=== PATIENT | male | born 1945 | race Caucasian/White ===

== ENCOUNTER 2020-12-22 08:05 | Emergency (ER) | payer OTHER ==
[~2020-12-22] VITALS: Ht 182.9 cm; Wt 93.4 kg
[~2020-12-22 08:05] MED LIST: ADULT LOW DOSE81 MG PO; ALLEGRA180 MG PO; CALCIUM +D & M1 EACH PO; CINNAMON PO; FISH OIL 1,0001 EAC5 PO; GLUCOPHAGE1000 MG PO; LANTUS SC; NOVOLOG100 UNIT/1 SQ; PRAVASTATIN SOD40 MG PO; TOPROL XL50 MG PO; ZESTRIL5 MG PO
[2020-12-22] MEDS ORDERED: ACTOS15 MG PO (08:24)
[2020-12-22] MEDS ORDERED: COZAAR 25 MG TA25 M1 PO (08:24)
[2020-12-22] MEDS ORDERED: LIPITOR10 MG PO (08:24)
[2020-12-22 08:36] LABS: ABSOLUTE BASOPHILS 0.1 thou/uL (0.0-0.2); ABSOLUTE EOSINOPHILS 0.2 thou/uL (0.0-0.7); ABSOLUTE LYMPHOCYTES 0.8 thou/uL (0.8-5.3); ABSOLUTE MONOCYTES 0.7 thou/uL (0.0-1.2); ABSOLUTE NEUTROPHILS 9.8 thou/uL (1.6-8.1); BASOPHILS 0.9 %; EOSINOPHILS 1.4 %; HEMOGLOBIN 12.4 gm/dL (14.0-18.0); LYMPHOCYTES 7.2 %; MCH 29.3 pg (26.0-34.0); MCHC 32.7 g/dL (28.0-37.0); MCV 89.5 fL (80.0-100.0); MONOCYTES 6.4 %; MPV 7.5 fl. (7.2-11.1); NUCLEATED RBCS 0 /100WBC; PLATELET COUNT* 236 thou/uL (150-400); POLYS 84.1 %; RBC 4.25 mil/uL (4.50-6.00); RDW-CV 14.1 % (10.5-14.5); WBC 11.7 thou/uL (4.0-11.0)
[2020-12-22 08:45] LABS: CALCIUM 9.1 mg/dL (8.5-10.1); POTASSIUM 3.8 mmol/L (3.5-5.1)
[2020-12-22 08:47] LABS: APTT 25.6 Seconds (25.0-31.3); PROTIME 10.3 Seconds (9.20-11.50)
[2020-12-22 08:56] LABS: ALBUMIN 3.3 g/dL (3.4-5.0); TOTAL BILIRUBIN 0.4 mg/dL (<0.1-1.0); TOTAL PROTEIN 7.5 g/dL (6.4-8.2)
[2020-12-22 09:50] VITALS: BP 165/73
--- NOTE | 2020-12-22 10:40 | EKG ---
[place] [address] ELECTROCARDIOGRAM REPORT Name: BROOKE CHAWLA Room: [facility]#: [id number] Admission: 12/22/20 Attend Phys: Discharge: Date of : 43 Date of Service: 12/22/20827 Report #: [id number] THIS REPORT FOR: //name// [facility] ED Test Date: 2020-12-22 Test Time: 08:28:27 Pat Name: BROOKE CHAWLA Department: Room: Gender: Lens Blank Gauger: [facility] : 1945 Requested By: Gonzalo Lomeli Order Number: [id number] MD: Shaw Sal Measurements Intervals [place] Rate: 58 P: 44 DC: 213 QRS: 62 QRSD: 169 T: 38 QT: 472 QTc: 464 Interpretive Statements Sinus rhythm Atrial premature complex Prolonged DC interval Right bundle branch block No previous ECG available for comparison Electronically Signed On 12-22-2020 10:40:48 SUPERINTENDENT CIRCUS by Shaw Sal [email or web address] <ELECTRONICALLY SIGNED> By: Shaw Sal MD, [facility] 12/22/20 1040 7 Shaw Sal MD, [facility] /EPI
== END 2020-12-22 09:55 | disposition home or self-care (01) ==
LOC: M.ERS 08:05
PROVIDERS: Family Medicine
DX: E16.2 Hypoglycemia, unspecified (principal); I10 Essential (primary) hypertension; G47.30 Sleep apnea, unspecified; E78.5 Hyperlipidemia, unspecified; I25.10 Atherosclerotic heart disease of native coronary artery without angina pectoris; Z95.1 Presence of aortocoronary bypass graft; Z88.8 Allergy status to other drugs, medicaments and biological substances; Z79.4 Long term (current) use of insulin

== ENCOUNTER 2021-11-25 17:35 | Inpatient (IN) | payer OTHER ==
[~2021-11-25] VITALS: Ht 180.3 cm; Wt 93.0 kg
--- NOTE | ~2021-11-25 | PROC ---
[address] [address] PROCEDURE REPORT Name: BROOKE CHAWLA Room: [address] IN M.R.#: [id number] Admission: 11/25/21 Attend Phys: Randall Isidro MD Discharge: Date of : 43 Report #: [id number] THIS REPORT FOR: cc: Jeffrey Jacinto John E. DO [facility],Medical Records Staff ~ For GI report, please see the Provation report in Perceptive 7 content. By: 0658Medical Records Staff NATALIE /BRITTNEY
--- NOTE | ~2021-11-25 | CON ---
[address] [address] CONSULTATION Name: BROOKE CHAWLA Room: [address] IN M.R.#: [id number] Admission: 11/25/21 Attend Phys: Randall Isidro MD Discharge: Date of : 43 Report #: [id number] THIS REPORT FOR: cc: Jeffrey Jacinto John E. DO Khosla, Parveen K. MD ~ DATE OF CONSULTATION: 12/08/2021 HISTORY OF PRESENT ILLNESS: This is a 76-year-old male patient who was evaluated by me for the possibility of stroke. The patient was already seen by [facility] for neurological consultation and Neurology consultation is recommended for a followup. This patient has a huge records and part of it was reviewed and it looks like the patient was admitted with multiple problems which include septic shock, acute kidney problems, non-STEMI and he had some leg pain, which was going to be addressed. REVIEW OF SYSTEMS: Positive for the fact that this patient has a prior coronary artery disease. The patient also has what looks like atrial fibrillation. He had a GI bleed. I understand from the notes he is not on any anticoagulation now because of the GI bleed. He was in ICU and he has been here for a long time now. Review of systems is positive for respiratory failure also. He has a multisystem problems. He denies any prior history of stroke. It looks like he had been diagnosed with the peripheral vascular disease. He has a history of electrolyte imbalances. A 14-point review of systems is also positive for numerous other medical problems as summarized in other consultants note, part of which were reviewed. FAMILY HISTORY: Negative for any congenital epilepsy. SOCIAL HISTORY: He is and his provided most of the history. PHYSICAL EXAMINATION: GENERAL: The patient is difficult to examine because he is on BiPAP, but he says his speech is reasonable. says that his speech was bad yesterday. This was because of some sputum, which was stuck in his throat and this morning, they noticed it was worse, but it is better now. They did not tell me whether it is back to the baseline or not. NEUROLOGIC: His cranial nerve examination was attempted, but it was unsuccessful. He has very little strength in all 4 extremities. The strength is estimated to be about 2/5 in the upper extremities and 1/5 in the lower extremities. I could not elicit his reflexes. He did reasonably well with the position sense. He says he can feel touch. CARDIAC: Noncontributory. He has at least 1 episode of atrial fibrillation. VITAL SIGNS: His blood pressure is 130/64, respirations 28, pulse is 78. [place] [address] CONSULTATION Name: BROOKE CHAWLA Room: [address] IN .R.#: [id number] Admission: 11/25/21 Attend Phys: Randall Isidro MD Discharge: Date of : 43 Report #: [id number] LABORATORY DATA: His last hemoglobin was 8.8. At one time, it was 6.5. IMAGING: He did have a CT angio of the head and neck that showed stenosis about 50% on both sides. IMPRESSION AND PLAN: This patient is predisposed to develop seizure because of carotid stenosis as well as atrial fibrillations. It is difficult to tell if he had a stroke at this time or not because he has so many other medical issues, but he has very poor movement in all 4 extremities. 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 I will talk to his doctors tomorrow to see if he can go for any testing like MRI. He will need an extensive MRI if he goes there and we will decide only after talking to them whether we can take him for the testing or not. I spent more than 50 minutes of time taking care of this patient today and majority was spent counseling, coordinating and reviewing his extensive records including imaging studies. Thank you very much for this referral. By: 1647 Lakshmi Galvez MD /nick
--- NOTE | ~2021-11-25 | CON ---
[address] [address] CONSULTATION Name: BROOKE CHAWLA Room: [address] IN M.R.#: [id number] Admission: 11/25/21 Attend Phys: Randall Isidro MD Discharge: Date of : 43 Report #: [id number] THIS REPORT FOR: cc: Jeffrey Jacinto John E. DO Namin, Farid M. MD ~ DATE OF CONSULTATION: 11/27/2021 REASON FOR CONSULTATION: Active GI bleeding. HISTORY OF PRESENT ILLNESS: This is a 76-year-old male with history of coronary artery disease, status post CABG, who is on Eliquis. The patient presented to hospital ER with neck pain and knee pain. He apparently was dropping his hemoglobin and this morning coded. The patient's hemoglobin had dropped from 11 to 6. He usually takes Eliquis as mentioned above, which was hold today. PAST MEDICAL HISTORY: Significant for history of coronary artery disease, status post CABG, diabetes mellitus, hypertension, sleep apnea, dyslipidemia, hernia repair, retinopathy, partial pancreatectomy, and knee pain. ALLERGIES: No known drug allergy. MEDICATIONS: Please refer to MAR. SOCIAL HISTORY: The patient lives at home. He is on Eliquis and there is no report of alcohol or tobacco use. FAMILY HISTORY: Noncontributory. PHYSICAL EXAMINATION: VITAL SIGNS: Reveals normal vitals. GENERAL: The patient is sedated and intubated. NECK: Supple. CARDIOVASCULAR: Regular rate. LUNGS: Clear bilaterally. ABDOMEN: Soft. Bowel sounds are positive. NEUROLOGIC: The patient is sedated. LABORATORY DATA: Reveals sodium of 132, potassium 4.1, BUN is 56, creatinine 1.6, glucose 218. AST is 48, ALT 14, alkaline phosphatase 57, total bilirubin is 0.6, albumin is 1.2. WBC is 15.2, hemoglobin 6.1, down from 11.2 on admission, platelet is 160. IMAGING: There is active activity in the right upper quadrant near the gallbladder. This may suggest bleeding near the [place] [address] CONSULTATION Name: BROOKE CHAWLA Room: [address] IN [facility]#: [id number] Admission: 11/25/21 Attend Phys: Randall Isidro MD Discharge: Date of : 43 Report #: [id number] ASSESSMENT AND PLAN: The patient with significant drop in hemoglobin and anemia, which is posthemorrhagic. We will transfuse him to hemoglobin of 8. He should be off of anticoagulation therapy. We will consider Protonix drip, get clearance from Cardiology as the patient has non-ST elevation myocardial infarction and perform upper endoscopy. If we could not find the source of bleeding, the patient may benefit from CT angio with coiling by IR. By: 1315 1914Margot Linder MD /nick
--- NOTE | ~2021-11-25 | PROC ---
[address] [address] PROCEDURE REPORT Name: BROOKE CHAWLA Room: [address] IN M.R.#: [id number] Admission: 11/25/21 Attend Phys: Randall Isidro MD Discharge: Date of : 43 Report #: [id number] THIS REPORT FOR: cc: Jeffrey Jacinto John E. DO [facility],Medical Records Staff ~ For GI report, please see the Provation report in Perceptive 7 content. By: 0656Medical Records Staff MARIPOSA /BRITTNEY
[~2021-11-25 17:35] MED LIST changes: +ACTOS15 MG PO; +COZAAR 25 MG TA25 M1 PO; +LIPITOR10 MG PO
[2021-11-25 17:40] VITALS: BP 147/75
[2021-11-25 18:35] LABS: BE -0.5 mmol/L (-2 to +3); PO2 VENOUS 40.1 mmHg (35.0-45.0)
[2021-11-25 18:37] LABS: HEMATOCRIT 37.5 % (42.0-52.0); HEMOGLOBIN 12.3 gm/dL (14.0-18.0); MCH 29.6 pg (26.0-34.0); MCHC 32.8 g/dL (28.0-37.0); MCV 90.1 fL (80.0-100.0); NUCLEATED RBCS 0 /100WBC; PLATELET COUNT* 144 thou/uL (150-400); RBC 4.16 mil/uL (4.50-6.00); RDW-CV 14.3 % (10.5-14.5); WBC 6.3 thou/uL (4.0-11.0)
[2021-11-25] MEDS ORDERED: PERCOCET PO (18:39)
[2021-11-25 18:55] LABS: ABSOLUTE LYMPHOCYTES 0.5 thou/uL (0.8-5.3); ABSOLUTE MONOCYTES 0.5 thou/uL (0.0-1.2); ABSOLUTE NEUTROPHILS 5.3 thou/uL (1.6-8.1); PLATELET ESTIMATE DECREASED
[2021-11-25 18:57] LABS: ALBUMIN 2.2 g/dL (3.4-5.0); CALCIUM 8.5 mg/dL (8.5-10.1); CREATININE 1.7 mg/dL (0.6-1.3); POTASSIUM 4.8 mmol/L (3.5-5.1); TOTAL BILIRUBIN 0.9 mg/dL (<0.1-1.0)
[2021-11-25 23:00] VITALS: BP 110/56
[2021-11-26] VITALS (7 sets, daily range): BP systolic 111–149; BP diastolic 59–77
[2021-11-26 07:00] LABS: HEMATOCRIT 33.6 % (42.0-52.0); HEMOGLOBIN 11.2 gm/dL (14.0-18.0); MCH 29.4 pg (26.0-34.0); MCHC 33.3 g/dL (28.0-37.0); MCV 88.3 fL (80.0-100.0); MPV 7.5 fl. (7.2-11.1); RBC 3.8 mil/uL (4.50-6.00); RDW-CV 14.8 % (10.5-14.5); WBC 7.5 thou/uL (4.0-11.0)
[2021-11-26 07:07] LABS: CALCIUM 7.8 mg/dL (8.5-10.1); CREATININE 1.2 mg/dL (0.6-1.3)
[2021-11-26 07:17] LABS: POTASSIUM 3.7 mmol/L (3.5-5.1)
[2021-11-26 10:23] LABS: CHOLESTEROL 78 mg/dL (<200); HDL CHOLESTEROL 11 mg/dL (>40); LDL CHOLESTEROL 36 mg/dL (<100); SERUM ASSESSMENT Clear; TC:HDL 7.1 Ratio (Not establshd); TRIGLYCERIDE 155 mg/dL (<150); VLDL 31 mg/dL (<40)
--- NOTE | 2021-11-26 10:55 | EKG ---
[place] [address] ELECTROCARDIOGRAM REPORT Name: BROOKE CHAWLA Room: [place] [address] ADM IN [facility]#: [id number] Admission: 11/25/21 Attend Phys: Randall Isidro, Discharge: Date of : 43 Date of Service: 11/25/21 1820 Report #: [id number] THIS REPORT FOR: //name// [facility] ED Test Date: 2021-11-25 Test Time: 18:20:04 Pat Name: BROOKE CHAWLA Department: Room: [facility] Gender: M Java J2Ee Application Developer: TRACEY : 1945 Requested By: Gonzalo Lomeli Order Number: [id number] MD: Shaw Sal Measurements Intervals [place] Rate: 103 P: 37 VT: 186 QRS: 82 QRSD: 151 T: 66 QT: 399 QTc: 523 Interpretive Statements Sinus tachycardia Right bundle branch block Compared to ECG 12/22/2020 08:28:27 Sinus rhythm no longer present Atrial premature complex(es) no longer present First degree AV block no longer present Electronically Signed On 11-26-2021 10:55:14 PHOTO LAB MANAGER by Shaw Sal [email or web address] <ELECTRONICALLY SIGNED> By: Shaw Sal MD, [facility] 11/26/21 1055 1820 1820 Shaw Sal MD, [facility] /EPI
[2021-11-26 19:46] LABS: INFLUENZA A ANTIGEN Negative (Negative); INFLUENZA B ANTIGEN Negative (Negative)
[2021-11-27] VITALS (67 sets, daily range): BP systolic 48–239; BP diastolic 24–155
[2021-11-27 04:20] LABS: ABSOLUTE MONOCYTES 1.6 thou/uL (0.0-1.2); ABSOLUTE NEUTROPHILS 12.6 thou/uL (1.6-8.1); BASOPHILS 0.1 %; EOSINOPHILS 0.1 %; HEMATOCRIT 23.2 % (42.0-52.0); LYMPHOCYTES 6.3 %; MCH 29.4 pg (26.0-34.0); MCHC 31.4 g/dL (28.0-37.0); MONOCYTES 10.6 %; MPV 9.2 fl. (7.2-11.1); NUCLEATED RBCS 0 /100WBC; PLATELET COUNT* 160 thou/uL (150-400); POLYS 82.9 %; RBC 2.48 mil/uL (4.50-6.00); RDW-CV 15.6 % (10.5-14.5); WBC 15.2 thou/uL (4.0-11.0)
[2021-11-27 04:52] LABS: ALBUMIN 1.2 g/dL (3.4-5.0); CALCIUM 7.2 mg/dL (8.5-10.1); CREATININE 1.7 mg/dL (0.6-1.3); POTASSIUM 4.1 mmol/L (3.5-5.1); TOTAL BILIRUBIN 0.6 mg/dL (<0.1-1.0); TOTAL PROTEIN 4.7 g/dL (6.4-8.2)
[2021-11-27 05:05] LABS: HEMATOCRIT 21.2 % (42.0-52.0)
[2021-11-27 05:11] LABS: HEMOGLOBIN 6.8 gm/dL (14.0-18.0)
[2021-11-27 06:12] LABS: HEMOGLOBIN 7.3 gm/dL (14.0-18.0); MCV 93.5 fL (80.0-100.0)
[2021-11-27 08:58] LABS: HEMATOCRIT 20.6 % (42.0-52.0)
[2021-11-27 09:10] LABS: HEMOGLOBIN 6.1 gm/dL (14.0-18.0)
[2021-11-27 09:53] LABS: URINE BILIRUBIN NEGATIVE (Negative); URINE BLOOD 3+ (Negative); URINE CLARITY CLEAR; URINE COLOR YELLOW; URINE GLUCOSE-RANDOM NEGATIVE (Negative); URINE KETONES NEGATIVE (Negative); URINE LEUKOCYTES-REFLEX NEGATIVE (Negative); URINE NITRITE-REFLEX NEGATIVE (Negative); URINE PROTEIN 1+ (Negative); URINE SPECIFIC GRAVITY 1.025 (1.005-1.030); URINE UROBILINOGEN 0.2 E.U./dl (0.2-1.0)
[2021-11-27 09:58] LABS: PCO2 21.5 mmHg (35.0-45.0)
[2021-11-27 09:59] LABS: BE -23.1 mmol/L (-2 to +3)
[2021-11-27 10:10] LABS: SQUAMOUS 0-3 Few /LPF (0-3); URINE RBC 3-10 Few /HPF (0-2); URINE WBC-REFLEX 0-5 Rare /HPF (0-5)
[2021-11-27 10:11] LABS: BACTERIA-REFLEX 1-9 Few /HPF (None Seen); CASTS None Seen /LPF (None Seen); CRYSTALS None Seen /LPF (None Seen)
[2021-11-27 15:37] LABS: HEMATOCRIT 21.6 % (42.0-52.0)
[2021-11-27 16:30] LABS: BE -15.3 mmol/L (-2 to +3); PCO2 21.6 mmHg (35.0-45.0)
[2021-11-27 16:36] LABS: PO2 373.3 mmHg (75.0-100.0); pH 7.276 (7.340-7.450)
[2021-11-27 18:51] LABS: HEMATOCRIT 23.9 % (42.0-52.0); HEMOGLOBIN 7.9 gm/dL (14.0-18.0)
[2021-11-27] MEDS ORDERED: DORYX MPC120 MG PO (22:07)
[2021-11-27] MEDS ORDERED: DOXAZOSIN MESYLA2 MG PO (22:08)
[2021-11-27] MEDS ORDERED: LEVO-T75 MCG PO (22:11)
[2021-11-27] MEDS ORDERED: TRESIBA FL100 UNIT/1 SQ (22:23)
[2021-11-27] MEDS ORDERED: HUMALOG100 UNIT/1 SUBQ (22:23)
[2021-11-27] MEDS ORDERED: OZEMPIC0.25 MG/0. SQ (22:24)
[2021-11-28] VITALS (50 sets, daily range): BP systolic 91–133; BP diastolic 34–56
[2021-11-28 08:05] LABS: ALKALINE PHOSPHATASE 110 U/L (46-116); ANION GAP 14 mmol/L (7-16); BUN 81 mg/dL (7-18); CHLORIDE 102 mmol/L (98-107); CO2 19 mmol/L (21-32); GLUCOSE 310 mg/dL (70-99); SGPT 3129 U/L (30-65); SODIUM 135 mmol/L (136-145); TOTAL BILIRUBIN 0.7 mg/dL (<0.1-1.0); TOTAL PROTEIN 3.8 g/dL (6.4-8.2)
[2021-11-28 08:09] LABS: CREATININE 3.2 mg/dL (0.6-1.3)
[2021-11-28 08:12] LABS: CALCIUM 5.8 mg/dL (8.5-10.1)
[2021-11-28 08:29] LABS: HEMATOCRIT 28.6 % (42.0-52.0); HEMOGLOBIN 9.2 gm/dL (14.0-18.0)
[2021-11-28 09:15] LABS: ABSOLUTE BASOPHILS 0.1 thou/uL (0.0-0.2); ABSOLUTE EOSINOPHILS 0.4 thou/uL (0.0-0.7); ABSOLUTE LYMPHOCYTES 1.1 thou/uL (0.8-5.3); ABSOLUTE MONOCYTES 0.6 thou/uL (0.0-1.2); ABSOLUTE NEUTROPHILS 10.2 thou/uL (1.6-8.1); BASOPHILS 0.5 %; LYMPHOCYTES 8.9 %; MCH 30.1 pg (26.0-34.0); MCHC 32.7 g/dL (28.0-37.0); MCV 92.1 fL (80.0-100.0); MONOCYTES 4.7 %; NUCLEATED RBCS 0 /100WBC; PLATELET COUNT* 178 thou/uL (150-400); POLYS 82.9 %; RBC 2.45 mil/uL (4.50-6.00); RDW-CV 14.7 % (10.5-14.5); WBC 12.3 thou/uL (4.0-11.0)
[2021-11-28 09:30] LABS: SGOT < 5 U/L (15-37)
[2021-11-28 09:45] LABS: MAGNESIUM 1.8 mg/dL (1.8-2.4)
--- NOTE | 2021-11-28 11:53 | 2DMMODE ---
[place] [address] 2 D/M-MODE ECHOCARDIOGRAM Name: BROOKE CHAWLA Room: [address] IN .R.#: [id number] Admission: 11/25/21 Attend Phys: Randall Isidro, Discharge: Date of : 43 Date of Service: 11/28/21 1152 Report #: [id number] THIS REPORT FOR: cc: Jeffrey Jacinto John E. DO Holkins,Jeffrey Solorio MD [facility] ~ APPROVED REPORT Study performed: 11/28/2021 11:07:09 EXAM: Comprehensive 2D, Doppler, and color-flow Echocardiogram Patient Location: In-Patient Room #: 003 BSA: 2.07 HR: 104 bpm BP: 98/48 mmHg Other Information Study Quality: Fair Technically limited study due to inability to position patient. Indications [place] 2D Dimensions IVSd: 11.28 (7-11mm) LVOT Diam: 19.37 (18-24mm) LVDd: 38.59 mm PWd: 11.54 (7-11mm) Ascending Ao: 31.14 (22-36mm) LVDs: 26.16 (25-40mm) Aortic Root: 28.66 mm Volumes Left Atrial Volume (Systole) LA ESV Index: 9.00 mL/m2 Aortic Valve AoV Peak Rodrigo.: 2.46 m/s AO Peak Gr.: 24.20 mmHg LVOT Max P.15 mmHg AO Mean Gr.: 11.76 mmHg LVOT Mean P.68 mmHg LVOT Max V: 1.13 m/s AO V2 VTI: 33.79 cm LVOT Mean V: 0.94 m/s ESPERANZA (VTI): 1.57 cm2 LVOT V1 VTI: 17.98 [place] [address] 2 D/M-MODE ECHOCARDIOGRAM Name: BROOKE CHAWLA Room: [address] IN .R.#: [id number] Admission: 11/25/21 Attend Phys: Randall Isidro, Discharge: Date of : 43 Date of Service: 11/28/21 1152 Report #: [id number] Mitral Valve E/A Ratio: 0.60 MV Decel. Time: 170.70 ms MV E Max Rodrigo.: 0.47 m/s MV PHT: 49.50 ms MVA (PHT): 4.44 cm2 TDI E/Lateral E': 3.92 E/Medial E': 6.71 Medial E' Rodrigo.: 0.07 m/s Lateral E' Rodrigo.: 0.12 m/s Pulmonary Valve PV Peak Rodrigo.: 1.41 m/s PV Peak Gr.: 7.99 mmHg Tricuspid Valve RAP Estimate: 5.00 mmHg TR Peak Gr.: 21.01 mmHg RVSP: 26.01 mmHg PA Pressure: 26.01 mmHg Left Ventricle The left ventricle is normal size. There is normal LV segmental wall motion. There is normal left ventricular wall thickness. Left ventricular systolic function is normal. The left ventricular ejection fraction is within the normal range. LVEF is 65-70%. Grade I - abnormal relaxation pattern. Right Ventricle The right ventricle is normal size. The right ventricular systolic function is normal. Atria The left atrium size is normal. The right atrium size is normal. Aortic Valve Moderate aortic valve sclerosis. No aortic regurgitation is present. Mild aortic stenosis. Mitral Valve The mitral valve is normal in structure. There is no mitral valve regurgitation noted. No evidence of mitral valve stenosis. Tricuspid Valve The tricuspid valve is normal in structure. Mild [place] [address] 2 D/M-MODE ECHOCARDIOGRAM Name: DENTONBROOKE MICHAEL Room: [address]#: [id number] Admission: 11/25/21 Attend Phys: Randall Isidro, Discharge: Date of : 43 Date of Service: 11/28/21 1152 Report #: [id number] regurgitation. Pulmonic Valve The pulmonary valve is normal in structure. There is no pulmonic valvular regurgitation. Great Vessels The aortic root is normal in size. IVC is normal in size and collapses >50% with inspiration. Pericardium There is no pericardial effusion. <Conclusion> The left ventricle is normal size. Left ventricular systolic function is normal. The left ventricular ejection fraction is within the normal range. LVEF is 65-70%. Grade I - abnormal relaxation pattern. The right ventricle is normal size. The left atrium size is normal. Moderate aortic valve sclerosis. No aortic regurgitation is present. Mild aortic stenosis. The mitral valve is normal in structure. The tricuspid valve is normal in structure. Mild tricuspid regurgitation. IVC is normal in size and collapses >50% with inspiration. There is no pericardial effusion. There is normal LV segmental wall motion. <ELECTRONICALLY SIGNED> By: Jeffrey Juarez MD, FACC 11/28/21 1152 51 51 Jeffrey Juarez MD, FACC /INF
[2021-11-28 11:58] LABS: BE -8.1 mmol/L (-2 to +3); PCO2 33.9 mmHg (35.0-45.0); PO2 85.5 mmHg (75.0-100.0); pH 7.322 (7.340-7.450)
--- NOTE | 2021-11-28 13:14 | EKG ---
[place] [address] ELECTROCARDIOGRAM REPORT Name: BROOKE CHAWLA Room: [address] ADM IN .R.#: [id number] Admission: 11/25/21 Attend Phys: Randall Isidro, Discharge: Date of : 43 Date of Service: 11/27/21 0725 Report #: [id number] THIS REPORT FOR: //name// [facility] Test Date: 2021-11-27 Test Time: 07:25:25 Pat Name: BROOKE CHAWLA Department: Room: [facility] Gender: M Housing Development Specialist: JUAN R : 1945 Requested By: Magali Alvarado Order Number: [id number] Teetee MD: Jeffrey Juarez Measurements Intervals [place] Rate: 96 P: 69 AL: 150 QRS: 39 QRSD: 156 T: 38 QT: 404 QTc: 511 Interpretive Statements Sinus rhythm Right bundle branch block Compared to ECG 11/25/2021 18:20:04 Sinus tachycardia no longer present Electronically Signed On 11-28-2021 13:14:11 URGENT CARE NURSE PRACTITIONER by Jeffrey Juarez [email or web address] <ELECTRONICALLY SIGNED> By: Jeffrey Juarez MD, [facility] 11/28/21 1314 0725 0725 Jeffrey Juarez MD, [facility] /EPI
[2021-11-28 13:47] LABS: CREATININE 3.8 mg/dL (0.6-1.3)
[2021-11-28 13:49] LABS: CALCIUM 5.9 mg/dL (8.5-10.1)
[2021-11-28 18:41] LABS: BE -8.1 mmol/L (-2 to +3); PCO2 33.8 mmHg (35.0-45.0); PO2 107.4 mmHg (75.0-100.0); pH 7.322 (7.340-7.450)
[2021-11-29] VITALS (112 sets, daily range): BP systolic 82–139; BP diastolic 41–68
[2021-11-29 03:36] LABS: MCH 31.5 pg (26.0-34.0); MCHC 34.8 g/dL (28.0-37.0); MCV 90.3 fL (80.0-100.0); MPV 8.3 fl. (7.2-11.1); NUCLEATED RBCS 0 /100WBC; PLATELET COUNT* 165 thou/uL (150-400); RBC 1.71 mil/uL (4.50-6.00); WBC 9.6 thou/uL (4.0-11.0)
[2021-11-29 03:39] LABS: HEMOGLOBIN 5.4 gm/dL (14.0-18.0)
[2021-11-29 03:41] LABS: HEMATOCRIT 15.4 % (42.0-52.0)
[2021-11-29 03:52] LABS: CALCIUM 6.1 mg/dL (8.5-10.1); CREATININE 4.5 mg/dL (0.6-1.3); MAGNESIUM 1.9 mg/dL (1.8-2.4); POTASSIUM 4.1 mmol/L (3.5-5.1); TOTAL BILIRUBIN 0.7 mg/dL (<0.1-1.0); TOTAL PROTEIN 4.4 g/dL (6.4-8.2)
[2021-11-29 04:41] LABS: PHOSPHORUS* 5.4 mg/dL (2.5-4.9)
[2021-11-29 06:12] LABS: ABSOLUTE NEUTROPHILS 8.5 thou/uL (1.6-8.1); PLATELET ESTIMATE ADEQUATE
[2021-11-29 06:13] LABS: ABSOLUTE LYMPHOCYTES 0.8 thou/uL (0.8-5.3); ABSOLUTE MONOCYTES 0.3 thou/uL (0.0-1.2); ANISOCYTOSIS 3+; POLYCHROMASIA 1+
[2021-11-29 06:14] LABS: HYPOCHROMASIA 1+; MICROCYTES Occasional
[2021-11-29 06:38] LABS: HEMATOCRIT 15.5 % (42.0-52.0); HEMOGLOBIN 5.3 gm/dL (14.0-18.0)
[2021-11-29 07:24] LABS: BE -4.6 mmol/L (-2 to +3); PCO2 38.3 mmHg (35.0-45.0); PO2 106.5 mmHg (75.0-100.0); pH 7.348 (7.340-7.450)
[2021-11-29 11:51] LABS: HEMOGLOBIN 6.5 gm/dL (14.0-18.0)
[2021-11-29 11:52] LABS: HEMATOCRIT 19.1 % (42.0-52.0)
[2021-11-29 17:08] LABS: ABSOLUTE BASOPHILS 0.1 thou/uL (0.0-0.2); ABSOLUTE LYMPHOCYTES 0.8 thou/uL (0.8-5.3); ABSOLUTE MONOCYTES 0.3 thou/uL (0.0-1.2); ABSOLUTE NEUTROPHILS 13.3 thou/uL (1.6-8.1); BASOPHILS 0.4 %; EOSINOPHILS 0.2 %; HEMATOCRIT 23.2 % (42.0-52.0); HEMOGLOBIN 7.8 gm/dL (14.0-18.0); LYMPHOCYTES 5.7 %; MCH 29.7 pg (26.0-34.0); MCHC 33.7 g/dL (28.0-37.0); MCV 88.3 fL (80.0-100.0); MONOCYTES 2.3 %; NUCLEATED RBCS 0 /100WBC; PLATELET COUNT* 150 thou/uL (150-400); POLYS 91.4 %; RBC 2.63 mil/uL (4.50-6.00); RDW-CV 14.7 % (10.5-14.5); WBC 14.5 thou/uL (4.0-11.0)
[2021-11-29 17:42] LABS: ALBUMIN 2.1 g/dL (3.4-5.0); CALCIUM 6.5 mg/dL (8.5-10.1); CREATININE 3.7 mg/dL (0.6-1.3); POTASSIUM 3.9 mmol/L (3.5-5.1); TOTAL PROTEIN 4.8 g/dL (6.4-8.2)
[2021-11-29 20:37] LABS: INR 1.3; PROTIME 13.3 Seconds (9.20-11.50)
[2021-11-30] VITALS (264 sets, daily range): BP systolic 73–151; BP diastolic 25–96
[2021-11-30 04:27] LABS: ABSOLUTE EOSINOPHILS 0.1 thou/uL (0.0-0.7); ABSOLUTE LYMPHOCYTES 0.7 thou/uL (0.8-5.3); ABSOLUTE MONOCYTES 0.4 thou/uL (0.0-1.2); ABSOLUTE NEUTROPHILS 15.1 thou/uL (1.6-8.1); BASOPHILS 0.2 %; EOSINOPHILS 0.3 %; HEMOGLOBIN 7.4 gm/dL (14.0-18.0); LYMPHOCYTES 4.4 %; MCH 29.8 pg (26.0-34.0); MCHC 33.6 g/dL (28.0-37.0); MCV 88.9 fL (80.0-100.0); MONOCYTES 2.4 %; MPV 8.3 fl. (7.2-11.1); NUCLEATED RBCS 0 /100WBC; PLATELET COUNT* 149 thou/uL (150-400); POLYS 92.7 %; RBC 2.48 mil/uL (4.50-6.00); RDW-CV 15.2 % (10.5-14.5); WBC 16.3 thou/uL (4.0-11.0)
[2021-11-30 05:07] LABS: ALBUMIN 1.6 g/dL (3.4-5.0); CALCIUM 6.4 mg/dL (8.5-10.1); POTASSIUM 3.9 mmol/L (3.5-5.1); TOTAL PROTEIN 4.6 g/dL (6.4-8.2)
[2021-11-30 05:11] LABS: PHOSPHORUS* 3.9 mg/dL (2.5-4.9)
[2021-11-30 08:33] LABS: BE -0.8 mmol/L (-2 to +3); PCO2 41.7 mmHg (35.0-45.0); PO2 90.1 mmHg (75.0-100.0); pH 7.382 (7.340-7.450)
[2021-11-30 12:25] LABS: ABSOLUTE EOSINOPHILS 0.1 thou/uL (0.0-0.7); ABSOLUTE LYMPHOCYTES 0.4 thou/uL (0.8-5.3); ABSOLUTE MONOCYTES 0.7 thou/uL (0.0-1.2); ABSOLUTE NEUTROPHILS 18.8 thou/uL (1.6-8.1); EOSINOPHILS 0.3 %; HEMATOCRIT 22.6 % (42.0-52.0); HEMOGLOBIN 7.6 gm/dL (14.0-18.0); LYMPHOCYTES 1.8 %; MCH 29.7 pg (26.0-34.0); MCHC 33.8 g/dL (28.0-37.0); MCV 87.8 fL (80.0-100.0); MONOCYTES 3.7 %; MPV 8.3 fl. (7.2-11.1); NUCLEATED RBCS 0 /100WBC; PLATELET COUNT* 166 thou/uL (150-400); POLYS 94.2 %; RBC 2.57 mil/uL (4.50-6.00); RDW-CV 15.2 % (10.5-14.5)
[2021-11-30 15:15] LABS: HEMATOCRIT 22.1 % (42.0-52.0); HEMOGLOBIN 7.5 gm/dL (14.0-18.0)
[2021-11-30 17:07] LABS: HEPATITIS B SURFACE AG Negative (Negative)
[2021-12-01] VITALS (22 sets, daily range): BP systolic 105–149; BP diastolic 46–61
[2021-12-01 00:16] LABS: ABSOLUTE LYMPHOCYTES 0.4 thou/uL (0.8-5.3); ABSOLUTE MONOCYTES 0.4 thou/uL (0.0-1.2); ABSOLUTE NEUTROPHILS 17.1 thou/uL (1.6-8.1); BASOPHILS 0.2 %; EOSINOPHILS 0.1 %; HEMATOCRIT 23.8 % (42.0-52.0); HEMOGLOBIN 7.9 gm/dL (14.0-18.0); LYMPHOCYTES 2.5 %; MCH 29.7 pg (26.0-34.0); MCHC 33.2 g/dL (28.0-37.0); MCV 89.5 fL (80.0-100.0); MONOCYTES 2.2 %; MPV 8.3 fl. (7.2-11.1); NUCLEATED RBCS 0 /100WBC; PLATELET COUNT* 152 thou/uL (150-400); RBC 2.66 mil/uL (4.50-6.00)
[2021-12-01 03:52] LABS: ABSOLUTE BASOPHILS 0.1 thou/uL (0.0-0.2); ABSOLUTE LYMPHOCYTES 0.5 thou/uL (0.8-5.3); ABSOLUTE MONOCYTES 0.5 thou/uL (0.0-1.2); ABSOLUTE NEUTROPHILS 17.1 thou/uL (1.6-8.1); BASOPHILS 0.4 %; EOSINOPHILS 0.1 %; HEMATOCRIT 24.3 % (42.0-52.0); LYMPHOCYTES 2.7 %; MCH 29.5 pg (26.0-34.0); MCHC 33.1 g/dL (28.0-37.0); MCV 89.2 fL (80.0-100.0); MONOCYTES 2.8 %; MPV 8.2 fl. (7.2-11.1); NUCLEATED RBCS 0 /100WBC; PLATELET COUNT* 162 thou/uL (150-400); RBC 2.73 mil/uL (4.50-6.00); RDW-CV 15.4 % (10.5-14.5); WBC 18.2 thou/uL (4.0-11.0)
[2021-12-01 04:07] LABS: ALBUMIN 1.7 g/dL (3.4-5.0); CALCIUM 6.7 mg/dL (8.5-10.1); POTASSIUM 3.8 mmol/L (3.5-5.1); TOTAL BILIRUBIN 1.3 mg/dL (<0.1-1.0); TOTAL PROTEIN 5.2 g/dL (6.4-8.2)
[2021-12-01 04:09] LABS: CREATININE 2.8 mg/dL (0.6-1.3)
[2021-12-01 10:06] LABS: BE -2.8 mmol/L (-2 to +3); PO2 66.5 mmHg (75.0-100.0); pH 7.433 (7.340-7.450)
[2021-12-01 15:01] LABS: ABSOLUTE LYMPHOCYTES 0.5 thou/uL (0.8-5.3); ABSOLUTE MONOCYTES 0.5 thou/uL (0.0-1.2); ABSOLUTE NEUTROPHILS 17.7 thou/uL (1.6-8.1); BASOPHILS 0.2 %; HEMATOCRIT 25.8 % (42.0-52.0); HEMOGLOBIN 8.5 gm/dL (14.0-18.0); LYMPHOCYTES 2.4 %; MCH 29.9 pg (26.0-34.0); MCHC 33.2 g/dL (28.0-37.0); MCV 90.1 fL (80.0-100.0); MONOCYTES 2.6 %; MPV 8.4 fl. (7.2-11.1); NUCLEATED RBCS 0 /100WBC; PLATELET COUNT* 177 thou/uL (150-400); POLYS 94.8 %; RBC 2.86 mil/uL (4.50-6.00); RDW-CV 15.6 % (10.5-14.5); WBC 18.7 thou/uL (4.0-11.0)
--- NOTE | 2021-12-01 16:07 | EKG ---
[place] [address] ELECTROCARDIOGRAM REPORT Name: BROOKE CHAWLA Room: [address] ADM IN M.R.#: [id number] Admission: 11/25/21 Attend Phys: Randall Isidro, Discharge: Date of : 43 Date of Service: 12/01/21 1455 Report #: [id number] THIS REPORT FOR: //name// [facility] Test Date: 2021-12-01 Test Time: 14:55:23 Pat Name: BROOKE CHAWLA Department: Room: [address] Gender: M Molding Machine Operator Helper: - : 1945 Requested By: Vasyl Berman Order Number: [id number] Teetee MD: Jeffrey Juarez Measurements Intervals [place] Rate: 101 P: FL: QRS: 79 QRSD: 147 T: 30 QT: 359 QTc: 466 Interpretive Statements Sinus rhythm with frequent and consecutively occurring PACs Right bundle branch block Nonspecific ST-T alterations Compared to ECG 11/27/2021 07:25:25 PACs are noted and nonspecific ST-T changes have occurred Electronically Signed On 12-01-2021 16:07:00 MOTION PICTURE NARRATOR by Jeffrey Juarez [email or web address] <ELECTRONICALLY SIGNED> By: Jeffrey Juarez MD, FAC 12/01/21 1607 1455 1455 Jeffrey Juarez MD, [facility] /EPI
--- NOTE | 2021-12-01 17:13 | TEE ---
[place] [address] TRANSESOPHAGEAL ECHOCARDIOGRAM Name: BROOKE CHAWLA Room: [address] IN [facility]#: [id number] Admission: 11/25/21 Attend Phys: Randall Isidro, Discharge: Date of : 43 Date of Service: 12/01/21 1713 Report #: [id number] THIS REPORT FOR: cc: Jeffrey Jacinto John E. DO Liston, Michael J. MD [facility] ~ APPROVED REPORT Study performed: 12/01/2021 15:28:24 EXAM: Transesophageal Echocardiogram Patient Location: In-Patient Room #: 003 Status: routine BSA: 2.06 HR: 114 bpm BP: 105/50 mmHg Rhythm: Atrial Fibrillation Other Information Study Quality: Good Indications Atrial Fibrillation bacteremia Echo Enhancing Agent Indication: Rule out Shunt Agent(s) / Amount(s) Used: Agitated Saline 10 cc Procedure After obtaining informed consent, patient underwent transesophageal echo in the Bedside. Type of Sedation : Conscious Sedation Sedation was administered by Sowmya Sanders RN. Sedation start time: 1540 Case end Time: 1550 Sedation was achieved intravenously with: Versed (2) Fentanyl (50) Transesophageal probe was inserted and advanced into esophagus without difficulty by Ramiro Antunez MD, FACC. Echo enhancement indication: R/O Septal defect. Echo enhancement agent administered: Agitated Saline The ELA was performed without complications. Throughout the procedure, the blood pressure, pulse oximetry, [place] [address] TRANSESOPHAGEAL ECHOCARDIOGRAM Name: BROOKE CHAWLA Room: [address] IN [facility].#: [id number] Admission: 11/25/21 Attend Phys: Randall Isidro, Discharge: Date of : 43 Date of Service: 12/01/21 1713 Report #: [id number] rhythm, and rate were monitored. The patient tolerated the procedure without adverse effects. Recovery from conscious sedation was uneventful and vital signs were stable. Left Ventricle The left ventricle is normal size. There is normal LV segmental wall motion. There is normal left ventricular wall thickness. Left ventricular systolic function is normal. LVEF is 60-65%. Right Ventricle The right ventricle is normal size. The right ventricular systolic function is normal. Atria The left atrium size is normal. No thrombus is visualized in the left atrium or appendage. The interatrial septum is intact with no evidence for an atrial septal defect. The right atrium size is normal. Aortic Valve Moderate aortic valve sclerosis. No aortic regurgitation is present. Mitral Valve The mitral valve is normal in structure. Mild mitral regurgitation. No evidence of mitral valve stenosis. Tricuspid Valve The tricuspid valve is normal in structure. Mild tricuspid regurgitation. Pulmonic Valve Pulmonic valve is not well visualized. Great Vessels The aortic root is normal in size. Pericardium There is no pericardial effusion. <Conclusion> The left ventricle is normal size. There is normal left ventricular wall thickness. Left ventricular systolic function is normal. LVEF is 60-65%. The interatrial septum is intact with [place] [address] TRANSESOPHAGEAL ECHOCARDIOGRAM Name: BROOKE CHAWLA Room: [address] IN [facility].#: [id number] Admission: 11/25/21 Attend Phys: Randall Isidro, Discharge: Date of : 43 Date of Service: 12/01/211712 Report #: [id number] septal defect. The left atrium size is normal. No thrombus is visualized in the left atrium or appendage. Moderate aortic valve sclerosis. Mild mitral regurgitation. Mild tricuspid regurgitation. There was no evidence of valvular vegetation seen. <ELECTRONICALLY SIGNED> By: Ramiro Antunez MD, FACC 12/01/211712 12 12 Ramiro Antunez MD, FACC /INF
[2021-12-01 22:50] LABS: ABSOLUTE LYMPHOCYTES 0.6 thou/uL (0.8-5.3); ABSOLUTE MONOCYTES 0.5 thou/uL (0.0-1.2); ABSOLUTE NEUTROPHILS 14.7 thou/uL (1.6-8.1); BASOPHILS 0.2 %; HEMATOCRIT 24.6 % (42.0-52.0); HEMOGLOBIN 8.3 gm/dL (14.0-18.0); LYMPHOCYTES 3.7 %; MCH 30.4 pg (26.0-34.0); MCHC 33.8 g/dL (28.0-37.0); MCV 89.9 fL (80.0-100.0); MONOCYTES 3.4 %; MPV 8.5 fl. (7.2-11.1); NUCLEATED RBCS 0 /100WBC; PLATELET COUNT* 198 thou/uL (150-400); POLYS 92.7 %; RBC 2.74 mil/uL (4.50-6.00); RDW-CV 14.9 % (10.5-14.5); WBC 15.9 thou/uL (4.0-11.0)
[2021-12-02] VITALS (39 sets, daily range): BP systolic 96–143; BP diastolic 47–84
[2021-12-02 06:07] LABS: HEMATOCRIT 25.1 % (42.0-52.0); HEMOGLOBIN 8.3 gm/dL (14.0-18.0); MCH 30.4 pg (26.0-34.0); MCHC 33.3 g/dL (28.0-37.0); MCV 91.3 fL (80.0-100.0); MPV 8.1 fl. (7.2-11.1); NUCLEATED RBCS 0 /100WBC; PLATELET COUNT* 203 thou/uL (150-400); RBC 2.75 mil/uL (4.50-6.00); RDW-CV 15.3 % (10.5-14.5); WBC 13.9 thou/uL (4.0-11.0)
[2021-12-02 06:35] LABS: ALBUMIN 1.4 g/dL (3.4-5.0); CALCIUM 7.3 mg/dL (8.5-10.1); CREATININE 3.2 mg/dL (0.6-1.3); POTASSIUM 3.7 mmol/L (3.5-5.1); TOTAL BILIRUBIN 0.7 mg/dL (<0.1-1.0); TOTAL PROTEIN 5.5 g/dL (6.4-8.2)
[2021-12-02 06:54] LABS: ABSOLUTE LYMPHOCYTES 0.3 thou/uL (0.8-5.3); ABSOLUTE MONOCYTES 0.4 thou/uL (0.0-1.2); ABSOLUTE NEUTROPHILS 13.2 thou/uL (1.6-8.1)
[2021-12-02 06:55] LABS: PLATELET ESTIMATE ADEQUATE
[2021-12-02 12:40] LABS: ABSOLUTE LYMPHOCYTES 0.7 thou/uL (0.8-5.3); ABSOLUTE MONOCYTES 0.8 thou/uL (0.0-1.2); ABSOLUTE NEUTROPHILS 12.5 thou/uL (1.6-8.1); BASOPHILS 0.1 %; EOSINOPHILS 0.1 %; HEMATOCRIT 24.9 % (42.0-52.0); HEMOGLOBIN 8.1 gm/dL (14.0-18.0); LYMPHOCYTES 4.6 %; MCH 29.8 pg (26.0-34.0); MCHC 32.6 g/dL (28.0-37.0); MCV 91.2 fL (80.0-100.0); MONOCYTES 5.9 %; NUCLEATED RBCS 0 /100WBC; PLATELET COUNT* 207 thou/uL (150-400); POLYS 89.3 %; RBC 2.73 mil/uL (4.50-6.00)
[2021-12-02 20:58] LABS: HEMATOCRIT 24.3 % (42.0-52.0); MCH 30.2 pg (26.0-34.0); MCHC 33.1 g/dL (28.0-37.0); NUCLEATED RBCS 0 /100WBC; PLATELET COUNT* 222 thou/uL (150-400); RBC 2.67 mil/uL (4.50-6.00); RDW-CV 15.1 % (10.5-14.5); WBC 15.5 thou/uL (4.0-11.0)
[2021-12-02 21:36] LABS: ABSOLUTE LYMPHOCYTES 0.9 thou/uL (0.8-5.3); ABSOLUTE MONOCYTES 0.8 thou/uL (0.0-1.2); ABSOLUTE NEUTROPHILS 13.8 thou/uL (1.6-8.1); PLATELET ESTIMATE ADEQUATE
[2021-12-03] VITALS (26 sets, daily range): BP systolic 124–197; BP diastolic 52–82
[2021-12-03 05:29] LABS: ABSOLUTE LYMPHOCYTES 0.4 thou/uL (0.8-5.3); ABSOLUTE MONOCYTES 0.9 thou/uL (0.0-1.2); ABSOLUTE NEUTROPHILS 11.7 thou/uL (1.6-8.1); BASOPHILS 0.2 %; EOSINOPHILS 0.1 %; HEMATOCRIT 23.2 % (42.0-52.0); HEMOGLOBIN 7.8 gm/dL (14.0-18.0); LYMPHOCYTES 3.4 %; MCH 30.6 pg (26.0-34.0); MCHC 33.4 g/dL (28.0-37.0); MCV 91.6 fL (80.0-100.0); MONOCYTES 6.8 %; MPV 7.7 fl. (7.2-11.1); NUCLEATED RBCS 0 /100WBC; PLATELET COUNT* 199 thou/uL (150-400); POLYS 89.5 %; RBC 2.53 mil/uL (4.50-6.00); RDW-CV 15.1 % (10.5-14.5)
[2021-12-03 05:51] LABS: ALBUMIN 1.4 g/dL (3.4-5.0); CALCIUM 7.5 mg/dL (8.5-10.1); CREATININE 2.8 mg/dL (0.6-1.3); POTASSIUM 3.5 mmol/L (3.5-5.1); TOTAL BILIRUBIN 0.4 mg/dL (<0.1-1.0); TOTAL PROTEIN 5.7 g/dL (6.4-8.2)
[2021-12-03 05:54] LABS: MAGNESIUM 2.2 mg/dL (1.8-2.4); PHOSPHORUS* 4.3 mg/dL (2.5-4.9)
[2021-12-03 11:48] LABS: BE 5.1 mmol/L (-2 to +3); PCO2 37.6 mmHg (35.0-45.0); PO2 64.2 mmHg (75.0-100.0); pH 7.496 (7.340-7.450)
[2021-12-03 12:58] LABS: ABSOLUTE LYMPHOCYTES 0.5 thou/uL (0.8-5.3); ABSOLUTE NEUTROPHILS 11.2 thou/uL (1.6-8.1); BASOPHILS 0.2 %; HEMATOCRIT 24.4 % (42.0-52.0); HEMOGLOBIN 8.1 gm/dL (14.0-18.0); LYMPHOCYTES 3.7 %; MCH 30.2 pg (26.0-34.0); MCV 91.4 fL (80.0-100.0); MONOCYTES 7.8 %; MPV 7.5 fl. (7.2-11.1); NUCLEATED RBCS 0 /100WBC; PLATELET COUNT* 208 thou/uL (150-400); POLYS 88.3 %; RBC 2.67 mil/uL (4.50-6.00); RDW-CV 14.9 % (10.5-14.5); WBC 12.7 thou/uL (4.0-11.0)
[2021-12-03 20:45] LABS: ABSOLUTE BASOPHILS 0.2 thou/uL (0.0-0.2); ABSOLUTE LYMPHOCYTES 0.6 thou/uL (0.8-5.3); ABSOLUTE MONOCYTES 1.1 thou/uL (0.0-1.2); ABSOLUTE NEUTROPHILS 11.5 thou/uL (1.6-8.1); BASOPHILS 1.2 %; HEMATOCRIT 24.8 % (42.0-52.0); HEMOGLOBIN 8.2 gm/dL (14.0-18.0); LYMPHOCYTES 4.5 %; MCH 30.1 pg (26.0-34.0); MCV 91.1 fL (80.0-100.0); MONOCYTES 8.2 %; MPV 7.9 fl. (7.2-11.1); NUCLEATED RBCS 0 /100WBC; PLATELET COUNT* 224 thou/uL (150-400); POLYS 86.1 %; RBC 2.72 mil/uL (4.50-6.00); WBC 13.3 thou/uL (4.0-11.0)
[2021-12-03 20:52] LABS: CALCIUM 7.5 mg/dL (8.5-10.1); CREATININE 2.3 mg/dL (0.6-1.3); POTASSIUM 3.3 mmol/L (3.5-5.1)
[2021-12-04] VITALS (11 sets, daily range): BP systolic 156–194; BP diastolic 74–97
[2021-12-04 04:14] LABS: ABSOLUTE LYMPHOCYTES 0.5 thou/uL (0.8-5.3); ABSOLUTE MONOCYTES 0.9 thou/uL (0.0-1.2); ABSOLUTE NEUTROPHILS 10.5 thou/uL (1.6-8.1); BASOPHILS 0.1 %; HEMATOCRIT 24.7 % (42.0-52.0); HEMOGLOBIN 8.2 gm/dL (14.0-18.0); LYMPHOCYTES 3.9 %; MCH 30.5 pg (26.0-34.0); MCHC 33.2 g/dL (28.0-37.0); MONOCYTES 7.2 %; MPV 7.9 fl. (7.2-11.1); NUCLEATED RBCS 0 /100WBC; PLATELET COUNT* 234 thou/uL (150-400); POLYS 88.8 %; RBC 2.68 mil/uL (4.50-6.00); RDW-CV 14.9 % (10.5-14.5); WBC 11.8 thou/uL (4.0-11.0)
[2021-12-04 05:38] LABS: ALBUMIN 1.5 g/dL (3.4-5.0); CALCIUM 7.4 mg/dL (8.5-10.1); CREATININE 2.1 mg/dL (0.6-1.3); POTASSIUM 3.1 mmol/L (3.5-5.1); TOTAL BILIRUBIN 0.6 mg/dL (<0.1-1.0); TOTAL PROTEIN 6.3 g/dL (6.4-8.2)
--- NOTE | 2021-12-04 09:45 | CON ---
[address] [address] CONSULTATION Name: JOHANNEBROOKE SEYMOUR Room: [address] IN M.R.#: [id number] Admission: 11/25/21 Attend Phys: Randall Isidro MD Discharge: Date of : 43 Report #: [id number] THIS REPORT FOR: cc: Jeffrey Jacinto John E. DO Biggs, F. Douglas MD [facility] ~ DATE OF CONSULTATION: 12/03/2021 CARDIOLOGY HOSPITAL FOLLOWUP VISIT HISTORY OF PRESENT ILLNESS: The patient was intubated, sedated and on the ventilator. He is awake, but cannot respond. Report from the nurse indicates that he has had some mild systolic hypertension and mildly elevated heart rate with sinus tachycardia. PHYSICAL EXAMINATION: VITAL SIGNS: His pulse was 106, blood pressure 160/68, respirations 17 on the ventilator and temperature was 37.2. NECK: There was no jugular venous distention or hepatojugular reflux. LUNGS: Clear to auscultation and percussion. However, there were decreased breath sounds bilaterally. HEART: Revealed distant first and second heart sounds. There were no murmurs, rubs or gallops. Rhythm was regular and the rate was approximately 106. ABDOMEN: Soft, flat, nontender. There are no palpable masses. There is no organomegaly. EXTREMITIES: Reveal no cyanosis, clubbing or edema. IMPRESSION: 1. Possible non-ST segment elevation myocardial infarction versus a type 2 coronary event. 2. Gastrointestinal bleed. 3. Acute respiratory failure. 4. Acute kidney injury. 5. Elevated liver function tests. 6. Mild aortic stenosis. 7. One episode of atrial fibrillation with his acute event. RECOMMENDATIONS: Continue current therapy. I would start him on metoprolol tartrate 12.5 mg per tube b.i.d. I do note that this man was on 25 mg of Toprol-XL at home. I would continue support. <ELECTRONICALLY SIGNED> By: Roz Valencia MD, FACC 12/04/21 0945 0853 [id number]. Gustavo Valencia MD, FAC /nt
--- NOTE | 2021-12-04 12:19 | CON ---
[address] [address] CONSULTATION Name: JOHANNEBROOKE SEYMOUR Room: [address] IN M.R.#: [id number] Admission: 11/25/21 Attend Phys: Randall Isidro MD Discharge: Date of : 43 Report #: [id number] THIS REPORT FOR: cc: Jeffrey Jacinto John E. DO Biggs, F. Douglas MD [facility] ~ DATE OF CONSULTATION: 12/04/2021 CARDIOLOGY HOSPITAL FOLLOWUP VISIT NOTE HISTORY OF PRESENT ILLNESS: The patient was extubated yesterday afternoon and has done reasonably well. He is not very communicative this morning. He is off the ventilator. He is on high high-flow oxygen. He denies any chest pain. He is not having any GI bleeding apparently. PHYSICAL EXAMINATION: VITAL SIGNS: Today his pulse was 98, respirations 18, blood pressure 140/83, and his temperature is 37 degrees. HEENT: Head was atraumatic. Eyes were clear. NECK: Supple. There is no jugular venous distention or hepatojugular reflux. LUNGS: Clear to auscultation and percussion, but there were some coarse breath sounds in the bases. HEART: Revealed somewhat distant first and second heart sounds. There is no murmur, rub or gallops heard. Rhythm was regular. Rate was approximately 100. ABDOMEN: Soft, flat, nontender. EXTREMITIES: Reveal no cyanosis, clubbing or edema. NEUROLOGIC: The patient was mildly sedated and was not very communicative. IMPRESSION: 1. Non-ST segment elevation myocardial infarction over a week ago. 2. Coronary artery disease. 3. Aortic stenosis. 4. Gastrointestinal bleed. 5. Acute renal failure. RECOMMENDATIONS: I would continue his current therapy and continue aggressive support. <ELECTRONICALLY SIGNED> By: Roz Valencia MD, [facility] 12/04/21 1219 0929 [id number]. Gustavo Valencia MD, [facility] /nt
[2021-12-05] VITALS: BP 169/75
[2021-12-05 04:00] VITALS: BP 180/82
[2021-12-05 04:41] LABS: CALCIUM 7.6 mg/dL (8.5-10.1); CREATININE 1.8 mg/dL (0.6-1.3)
[2021-12-05 04:49] LABS: POTASSIUM 2.8 mmol/L (3.5-5.1)
[2021-12-05 08:00] VITALS: BP 107/76
--- NOTE | 2021-12-05 08:54 | CON ---
[address] [address] CONSULTATION Name: BROOKE CHAWLA Room: [address] IN M.R.#: [id number] Admission: 11/25/21 Attend Phys: Randall Isidro MD Discharge: Date of : 43 Report #: [id number] THIS REPORT FOR: cc: Jeffrey Jacinto John E. DO Vasudeva, Amita MD ~ DATE OF CONSULTATION: 11/29/2021 NEPHROLOGY CONSULTATION CONSULTING PHYSICIAN: Dr. Vigil. REASON FOR NEPHROLOGY CONSULTATION: Acute kidney injury. REASON FOR ADMISSION: Neck pain and knee pain. HISTORY OF PRESENT ILLNESS: This is a 76-year-old male with history of coronary artery disease, had CABG in the past, came in with neck pain and knee pain. This neck pain was going on for 1 week before he came to the hospital. He was found to have non-STEMI. His ejection fraction was found to be 65%-70% and Cardiology believes this was old non-STEMI and he had already infarcted. While he was in the hospital, he developed GI bleed, so his aspirin had to be put on hold. Hemoglobin dropped from 12.3 to 6.1 with transfusion came up, but again has dropped to 5.3 overnight. He also had to be intubated 2 days ago for airway protection and has been requiring pressor support in the form of Levophed since yesterday. He did receive a CTA, which was 2 days ago and his blood pressure was as low as 72/37 on 11/27. His creatinine, which was 1.7 on admission, went up to 3.8 yesterday and 4.5 today and he is anuric at this point. He has been getting IV fluids. He is getting hypervolemic. He did have evidence of active GI bleed, duodenal bleed on his nuclear scan, which was done 2 days ago. In addition to other medications at home, he does take losartan and metformin. Renal imaging did not show any hydronephrosis on the . His baseline creatinine is around 1.0 in 12/2020. Also, his blood cultures are growing streptococci and he has been treated for that as per primary team. He also has evidence of shock liver. This morning when I saw him, he was intubated and sedated. REVIEW OF SYSTEMS: As mentioned in history of present illness. The patient is not able to provide me with review of systems. ALLERGIES: SEASONAL ALLERGIES. HOME MEDICATIONS: Include NovoLog, aspirin, metoprolol, atorvastatin, losartan, Actos, 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 FAMILY HISTORY: Hypertension. SOCIAL HISTORY: Does not smoke, drink alcohol or use illicit drugs. PHYSICAL EXAMINATION: VITAL SIGNS: His blood pressure is 117/53, temperature was 38.8, pulse was 96, respiration was 13, and pulse ox 100% on 30% FiO2. GENERAL: He is intubated and sedated. HEAD AND EYES: Atraumatic, normocephalic. Conjunctivae normal. EARS, NOSE, AND THROAT: Normal ears and nose. ET tube in place. NECK: JVD difficult to assess. CHEST: Bilaterally diminished breath sounds. CARDIOVASCULAR: S1, S2 normal. No murmurs. ABDOMEN: Firm and bowel sounds are decreased. LOWER EXTREMITIES: There is anasarca. NEUROLOGICAL FUNCTION: He is currently sedated. PSYCHIATRIC: Not able to assess. LABORATORY DATA: Shows his hemoglobin was 5.3, WBC was 9.6. Sodium was 135, potassium 4.1, CO2 is 22, BUN was 107, creatinine was 4.5 and calcium was 6.1. Other labs are reviewed. IMAGING: Chest x-ray, abdominal and pelvic CTA and other imaging studies were reviewed. ASSESSMENT: 1. Acute kidney injury, the patient came with a creatinine of 1.7. His baseline creatinine in 12/2020 was 1.0 and creatinine has gone up to 4.5 and this is likely ischemic acute tubular necrosis in the setting of non-ST elevation myocardial infarction, gastrointestinal bleed, IV contrast use, extreme hypotension, septic shock. Renal imaging did not show any hydronephrosis. UA reviewed, has 1+ protein and 3-10 RBCs per high-power field. 2. Septic shock. Streptococci in blood will defer to primary team for treatment. 3. Hypocalcemia. 4. Active duodenal gastrointestinal bleed. GI is following the patient to go for endoscopy today. 5. Diabetes mellitus type 2. Blood glucose out of control when he first came in. [address] [address] CONSULTATION Name: BROOKE CHAWAL Room: [address] ADM IN Rosie#: [id number] Admission: 11/25/21 Attend Phys: Randall Isidro MD Discharge: Date of : 43 Report #: [id number] 6. Non-ST elevation myocardial infarction, aspirin is currently on hold because of gastrointestinal bleed and Cardiology is following. 7. Shock liver. 8. Left renal cyst and nonobstructive stones. 9. Elevated CPK. 10. Coronary artery disease with history of coronary artery bypass graft, came in with a non-ST elevation myocardial infarction. 11. Peripheral vascular disease. PLAN: 1. Stop his IV fluids, he is currently on a bicarbonate drip because he is getting hypervolemic, concentrate all his IV drips. 2. Follow CPK. 3. Not producing any urine. Renal function looks much worse, developing significant azotemia, we will plan on dialyzing him today after temporary dialysis catheter is placed. 4. Avoid hypotension, nephrotoxic agents and IV contrast. 5. EGD by GI today. 6. Calcium is replaced. 7. Antibiotics for streptococcal bacteremia as per primary team. Thank you for this consultation. We will continue to follow with you. Discussed with the patient's nurse in detail. Forty-five minutes spent in critical care. This time was spent in chart review, placing orders and care coordination. We will continue to follow with you. <ELECTRONICALLY SIGNED> By: Jacqueline Whitman MD 12/05/21 0854 [id number] 0922MD alicia Torres
[2021-12-05 12:00] VITALS: BP 149/69
[2021-12-05 17:25] VITALS: BP 146/71
--- NOTE | 2021-12-05 18:57 | CON ---
[address] [address] CONSULTATION Name: BROOKE CHAWLA Room: [address] IN M.R.#: [id number] Admission: 11/25/21 Attend Phys: Randall Isidro MD Discharge: Date of : 43 Report #: [id number] THIS REPORT FOR: cc: Jeffrey Jacinto John E. DO Pervez, Adeel MD ~ DATE OF CONSULTATION: 11/28/2021 REQUESTING PHYSICIAN: Dr. Vigil. INDICATION FOR CONSULTATION: Ventilator management. HISTORY OF PRESENT ILLNESS: A 76-year-old gentleman, past medical history includes a history of coronary artery disease, he is status post CABG. His baseline creatinine is normal. He is on Eliquis at home according to the GI note. It is not known to me as to why he is on Eliquis. At this time, the patient is admitted with knee pain; however, in fact he ruled in for acute myocardial infarction. He has been having a GI bleed. He has coded and currently is on high-dose Levophed. The patient also is in acute renal failure and his creatinine went up from 1.2 to 3.8. He is acidotic. He is on a bicarb drip. He is ventilating and oxygenating adequately, he is only on 30% FiO2. He does appear to have severe malnutrition with an albumin of 1.0. The patient has been on Versed and fentanyl drip, Versed drip was recently held, so far he is responding only to maximal painful stimuli. The patient is on the ventilator and therefore is unable to provide a further history or review of systems. PAST MEDICAL HISTORY: Coronary artery disease, status post CABG; diabetes; hypertension; sleep apnea, unknown if he is on CPAP at home; Eliquis use at home, indication not known to me; hyperlipidemia; hernia repair; retinopathy; partial pancreatectomy and a previous history of knee pain as well. He has just had an echocardiogram, which shows normal left ventricular ejection fraction at 65-70% with a pulmonary artery systolic of 26. SOCIAL HISTORY: Unable to provide information regarding smoking, ethanol abuse or drug abuse at this time. ALLERGIES: SEASONAL ALLERGIES. FAMILY HISTORY: No pertinent family history known at this time. CURRENT MEDICATIONS: List in [facility] reviewed. HOME MEDICATIONS: List also in [employer] reviewed. Also, [place] [address] CONSULTATION Name: BROOKE CHAWLA Room: [address]#: [id number] Admission: 11/25/21 Attend Phys: Randall Isidro MD Discharge: Date of : 43 Report #: [id number] PHYSICAL EXAMINATION: GENERAL: He is responding only to maximal painful stimuli, but he was just taken off Versed. Remains on a fentanyl drip. VITAL SIGNS: In the records reviewed. Levophed is at 0.48. HEENT: Head is normocephalic and atraumatic. There is an endotracheal tube in place. NECK: Does not show raised JVP, asymmetry, mass or lymph nodes. CHEST: Symmetrical expansion on inspection and palpation. On auscultation chest is clear. HEART: Regular. There is no murmur. ABDOMEN: Soft and nontender. EXTREMITIES: Lower extremities show no edema, no calf tenderness. SKIN: Dry and intact, but is cold and clammy. NEUROLOGIC: Moves all extremities bilaterally to painful stimuli.. LABORATORY DATA: The patient's lab work as well as chest x-ray in [facility] reviewed. ASSESSMENT AND PLAN: 1. Acute respiratory failure. The patient currently is on 30% FiO2. He is ventilating and oxygenating adequately. I do not see any significant pulmonary vascular congestion on the patient's chest x-ray, he is hemodynamically unstable and he also has a significant acidosis; therefore, is not a candidate for weaning at this time, we will keep him on the ventilator. Switch Versed to p.r.n. Continue the fentanyl drip. If he remains unresponsive, then we can take him off fentanyl drip as well and start p.r.n. fentanyl. If needed, we will add a Precedex drip. We will follow ABGs. 2. Acute renal failure with shock. His baseline creatinine is 1.2. Therefore, he is in acute renal failure. At this time, he is ventilating and oxygenating adequately. Therefore, I recommend that we give him more volume. His albumin is only 1.0 therefore, I ordered 2 doses of albumin for now. We will consider adding more later. We will go ahead and bolus him with 500 mL of normal saline. We will consider subsequently giving him more normal saline. His calcium on the labs was low as 5.9; however, I calculated corrected calcium for his albumin it comes to 8.3. We recommended also increasing the rate on the bicarb drip to 100. I ordered an ABG for this evening to follow up. 3. Streptococcus bacteremia, source at this time undefined. Suspected it could be a GI source, would be covered with current antibiotics. 4. Acute myocardial infarction. Cardiology Service on the case, normal left ventricular ejection fraction is noted. 5. Previous history of Eliquis use. Reason why he is on Eliquis, as documented by GI is not known to me at this time. 6. Acute gastrointestinal bleed. GI service on the case. Follow H and H. He [address] [place] [address] CONSULTATION Name: BROOKE CHAWLA Room: [address] IN .R.#: [id number] Admission: 11/25/21 Attend Phys: Randall Isidro MD Discharge: Date of : 43 Report #: [id number] earlier has received 2 units of packed RBCs. 7. Uncontrolled diabetes. He may need more insulin. I would defer to the primary service regarding whether subcutaneous insulin is increased or whether we switch over to insulin drip. 8. History of knee pain. Etiology is not fully defined at this time. Venous Dopplers were negative. 9. Severe malnutrition. His albumin is only 1.0. I did order albumin as above. 10. Gastrointestinal prophylaxis. Recommend sequential compression devices. 11. The patient is critically ill at this time. 12. Total time spent 40. Critical care to this patient today exceeds 45 minutes. <ELECTRONICALLY SIGNED> By: Justyn Bhat MD 12/05/21 1857 1309 1458Athomas Bhat MD /nt
[2021-12-05 21:00] VITALS: BP 153/69
[2021-12-06] VITALS: BP 135/78
[2021-12-06 04:00] VITALS: BP 152/65
[2021-12-06 05:33] LABS: CALCIUM 7.2 mg/dL (8.5-10.1); CREATININE 1.7 mg/dL (0.6-1.3); MAGNESIUM 1.7 mg/dL (1.8-2.4)
[2021-12-06 05:41] LABS: POTASSIUM 2.9 mmol/L (3.5-5.1)
[2021-12-06 05:48] LABS: ABSOLUTE LYMPHOCYTES 0.6 thou/uL (0.8-5.3); ABSOLUTE MONOCYTES 0.7 thou/uL (0.0-1.2); ABSOLUTE NEUTROPHILS 9.4 thou/uL (1.6-8.1); BASOPHILS 0.1 %; MCH 31.1 pg (26.0-34.0); MCHC 32.6 g/dL (28.0-37.0); MCV 95.4 fL (80.0-100.0); MONOCYTES 6.2 %; MPV 8.1 fl. (7.2-11.1); NUCLEATED RBCS 0 /100WBC; POLYS 87.7 %; RBC 2.03 mil/uL (4.50-6.00); RDW-CV 15.6 % (10.5-14.5); WBC 10.7 thou/uL (4.0-11.0)
[2021-12-06 06:20] LABS: PLATELET COUNT* 380 thou/uL (150-400)
[2021-12-06 06:21] LABS: HEMATOCRIT 19.4 % (42.0-52.0); HEMOGLOBIN 6.3 gm/dL (14.0-18.0)
[2021-12-06 06:45] LABS: % SATURATION 10 % (20-39); IRON 13 ug/dL (50-175)
[2021-12-06 07:49] LABS: ESR (SEDRATE) 135 mm/hr (0-20)
[2021-12-06 08:00] VITALS: BP 157/75
[2021-12-06 08:16] LABS: ALBUMIN 1.3 g/dL (3.4-5.0); CALCIUM 7.2 mg/dL (8.5-10.1); CREATININE 1.7 mg/dL (0.6-1.3); POTASSIUM 3.3 mmol/L (3.5-5.1); TOTAL BILIRUBIN 0.4 mg/dL (<0.1-1.0); TOTAL PROTEIN 5.2 g/dL (6.4-8.2)
[2021-12-06 10:43] VITALS: BP 128/64; BP 140/74; BP 145/78; BP 146/77
[2021-12-06 15:09] LABS: HEMATOCRIT 22.2 % (42.0-52.0); HEMOGLOBIN 7.2 gm/dL (14.0-18.0)
[2021-12-06 20:00] VITALS: BP 136/70
[2021-12-06 21:49] LABS: HEMATOCRIT 23.5 % (42.0-52.0); HEMOGLOBIN 7.6 gm/dL (14.0-18.0); MCH 30.4 pg (26.0-34.0); MCHC 32.5 g/dL (28.0-37.0); MCV 93.4 fL (80.0-100.0); MPV 8.3 fl. (7.2-11.1); NUCLEATED RBCS 0 /100WBC; PLATELET COUNT* 385 thou/uL (150-400); RBC 2.51 mil/uL (4.50-6.00); RDW-CV 15.6 % (10.5-14.5); WBC 9.9 thou/uL (4.0-11.0)
[2021-12-06 21:54] LABS: CALCIUM 7.1 mg/dL (8.5-10.1); CREATININE 1.5 mg/dL (0.6-1.3); POTASSIUM 3.9 mmol/L (3.5-5.1)
[2021-12-06 23:08] LABS: ABSOLUTE LYMPHOCYTES 0.5 thou/uL (0.8-5.3); ABSOLUTE MONOCYTES 0.2 thou/uL (0.0-1.2); ABSOLUTE NEUTROPHILS 9.2 thou/uL (1.6-8.1); PLATELET ESTIMATE ADEQUATE
[2021-12-06 23:09] LABS: HYPOCHROMASIA 2+
[2021-12-06 23:30] VITALS: BP 136/66
[2021-12-07 04:00] VITALS: BP 158/70
[2021-12-07 06:56] LABS: CREATININE 1.4 mg/dL (0.6-1.3); POTASSIUM 3.2 mmol/L (3.5-5.1)
[2021-12-07 06:58] LABS: HEMATOCRIT 20.5 % (42.0-52.0); MCH 30.2 pg (26.0-34.0); MCHC 31.8 g/dL (28.0-37.0); MCV 94.9 fL (80.0-100.0); MPV 8.2 fl. (7.2-11.1); RBC 2.16 mil/uL (4.50-6.00); RDW-CV 15.8 % (10.5-14.5)
[2021-12-07 07:02] LABS: HEMOGLOBIN 6.5 gm/dL (14.0-18.0)
[2021-12-07 10:09] VITALS: BP 134/60; BP 144/60; BP 145/64; BP 146/65
[2021-12-07 17:03] VITALS: BP 157/73
[2021-12-07 19:45] VITALS: BP 185/90
[2021-12-07 23:36] LABS: HEMATOCRIT 27.4 % (42.0-52.0)
[2021-12-07 23:44] LABS: HEMOGLOBIN 8.8 gm/dL (14.0-18.0)
[2021-12-08] VITALS (8 sets, daily range): BP systolic 119–183; BP diastolic 64–83
[2021-12-08 06:49] LABS: CALCIUM 7.3 mg/dL (8.5-10.1); CREATININE 1.3 mg/dL (0.6-1.3); MAGNESIUM 1.7 mg/dL (1.8-2.4); POTASSIUM 3.1 mmol/L (3.5-5.1)
[2021-12-08 12:49] LABS: BE -0.3 mmol/L (-2 to +3); PO2 71.5 mmHg (75.0-100.0); pH 7.395 (7.340-7.450)
[2021-12-08 15:08] LABS: PCO2 44.2 mmHg (35.0-45.0); PO2 74.4 mmHg (75.0-100.0); pH 7.346 (7.340-7.450)
[2021-12-08 15:11] LABS: ABSOLUTE LYMPHOCYTES 0.3 thou/uL (0.8-5.3); ABSOLUTE MONOCYTES 0.2 thou/uL (0.0-1.2); ABSOLUTE NEUTROPHILS 12.1 thou/uL (1.6-8.1); BASOPHILS 0.2 %; HEMATOCRIT 28.3 % (42.0-52.0); HEMOGLOBIN 8.8 gm/dL (14.0-18.0); LYMPHOCYTES 2.5 %; MCH 29.2 pg (26.0-34.0); MCHC 31.3 g/dL (28.0-37.0); MCV 93.4 fL (80.0-100.0); MONOCYTES 1.3 %; NUCLEATED RBCS 0 /100WBC; RBC 3.03 mil/uL (4.50-6.00); RDW-CV 17.1 % (10.5-14.5); WBC 12.6 thou/uL (4.0-11.0)
[2021-12-08 15:12] LABS: PLATELET COUNT* 451 thou/uL (150-400)
[2021-12-08 21:36] LABS: BE -0.4 mmol/L (-2 to +3); PCO2 30.8 mmHg (35.0-45.0); PO2 68.2 mmHg (75.0-100.0); pH 7.482 (7.340-7.450)
[2021-12-08 22:46] LABS: ALBUMIN 1.2 g/dL (3.4-5.0); CALCIUM 7.3 mg/dL (8.5-10.1); CREATININE 1.4 mg/dL (0.6-1.3); TOTAL BILIRUBIN 0.4 mg/dL (<0.1-1.0)
[2021-12-09 01:18] VITALS: BP 120/50
[2021-12-09 04:47] LABS: ABSOLUTE LYMPHOCYTES 0.2 thou/uL (0.8-5.3); ABSOLUTE MONOCYTES 0.1 thou/uL (0.0-1.2); ABSOLUTE NEUTROPHILS 8.6 thou/uL (1.6-8.1); BASOPHILS 0.3 %; HEMATOCRIT 28.7 % (42.0-52.0); HEMOGLOBIN 8.9 gm/dL (14.0-18.0); LYMPHOCYTES 2.6 %; MCH 29.1 pg (26.0-34.0); MCHC 31.1 g/dL (28.0-37.0); MCV 93.3 fL (80.0-100.0); MONOCYTES 1.5 %; MPV 8.3 fl. (7.2-11.1); NUCLEATED RBCS 0 /100WBC; PLATELET COUNT* 417 thou/uL (150-400); POLYS 95.6 %; RBC 3.08 mil/uL (4.50-6.00); RDW-CV 16.3 % (10.5-14.5)
[2021-12-09 05:17] LABS: ALBUMIN 0.9 g/dL (3.4-5.0); ALKALINE PHOSPHATASE 86 U/L (46-116); ANION GAP 8 mmol/L (7-16); BUN 39 mg/dL (7-18); CALCIUM 7.3 mg/dL (8.5-10.1); CHLORIDE 120 mmol/L (98-107); CHOLESTEROL 65 mg/dL (<200); CO2 25 mmol/L (21-32); CREATININE 1.5 mg/dL (0.6-1.3); GLUCOSE 213 mg/dL (70-99); HDL CHOLESTEROL 20 mg/dL (>40); LDL CHOLESTEROL 35 mg/dL (<100); POTASSIUM 3.8 mmol/L (3.5-5.1); SGOT 24 U/L (15-37); SGPT 53 U/L (30-65); SODIUM 153 mmol/L (136-145); TC:HDL 3.3 Ratio (Not establshd); TOTAL BILIRUBIN 0.3 mg/dL (<0.1-1.0); TOTAL PROTEIN 5.3 g/dL (6.4-8.2); TRIGLYCERIDE 53 mg/dL (<150); VLDL 11 mg/dL (<40)
[2021-12-09 05:23] VITALS: BP 116/63
[2021-12-09 05:52] LABS: SERUM ASSESSMENT CLEAR
[2021-12-09 08:33] VITALS: BP 126/68
--- NOTE | 2021-12-09 09:57 | EKG ---
[place] [address] ELECTROCARDIOGRAM REPORT Name: BROOKE CHAWLA Room: [address] ADM IN .R.#: [id number] Admission: 11/25/21 Attend Phys: Randall Isidro, Discharge: Date of : 43 Date of Service: 12/08/21 1442 Report #: [id number] THIS REPORT FOR: //name// [facility] Test Date: 2021-12-08 Test Time: 14:42:24 Pat Name: BROOKE CHAWLA Department: Room: [address] Gender: M Caser Up: : 1945 Requested By: Vasyl Berman Order Number: [id number] Teetee MD: Shaw Sal Measurements Intervals [place] Rate: 93 P: 48 IA: 169 QRS: 0 QRSD: 138 T: -15 QT: 393 QTc: 489 Interpretive Statements Sinus rhythm Atrial premature complex Right bundle branch block Compared to ECG 12/01/2021 14:55:23 rate has slowed Electronically Signed On 12-09-2021 9:57:30 DUPLICATING MACHINE OPERATOR by Shaw Sal [email or web address] <ELECTRONICALLY SIGNED> By: Shaw Sal MD, FAC 12/09/21 0957 1442 1442 Shaw Sal MD, [facility] /EPI
[2021-12-09 12:00] VITALS: BP 116/71
--- NOTE | 2021-12-09 14:17 | 2DMMODE ---
[place] [address] 2 D/M-MODE ECHOCARDIOGRAM Name: BROOKE CHAWLA Room: [address] ADM IN [place].#: [id number] Admission: 11/25/21 Attend Phys: Randall Isidro, Discharge: Date of : 43 Date of Service: 12/09/21 1416 Report #: [id number] THIS REPORT FOR: cc: Jeffrey Jacinto,Jeffrey Amaral,Shaw Velez MD [facility] ~ APPROVED REPORT Study performed: 12/09/2021 10:51:25 EXAM: Limited 2D Echocardiogram Patient Location: In-Patient Room #: [facility] Status: routine BSA: 2.13 HR: 97 bpm BP: 126/68 mmHg Rhythm: NSR Other Information Study Quality: Good Indications Diabetes Elevated Troponin re-evaluate EF Left Ventricle The left ventricle is normal size. There is normal LV segmental wall motion. Mild concentric left ventricular hypertrophy. The left ventricular systolic function is normal. The left ventricular ejection fraction is within the normal range. LVEF is 65-70%. Right Ventricle The right ventricle is normal size. The right ventricular systolic function is normal. Atria The left atrium size is normal. Aortic Valve Aortic valve is calcified. Moderate aortic stenosis. Mitral Valve The mitral valve [place] [address] 2 D/M-MODE ECHOCARDIOGRAM Name: BROOKE CHAWLA Room: [address] IN M.R.#: [id number] Admission: 11/25/21 Attend Phys: Randall Isidro, Discharge: Date of : 43 Date of Service: 12/09/21 1416 Report #: [id number] Tricuspid Valve The tricuspid valve is normal in structure. Pulmonic Valve The pulmonary valve is normal in structure. Great Vessels The aortic root is normal in size. IVC is normal in size and collapses >50% with inspiration. Pericardium There is no pericardial effusion. <Conclusion> Mild concentric left ventricular hypertrophy. LVEF is 65-70%. Moderate aortic stenosis. There is no pericardial effusion. <ELECTRONICALLY SIGNED> By: Shaw Sal MD, FACC 12/09/211415 15 15 Shaw Sal MD, FACC /INF
[2021-12-09 16:00] VITALS: BP 110/70
[2021-12-09 19:50] VITALS: BP 133/75
[2021-12-10] VITALS: BP 133/78
[2021-12-10 03:56] LABS: HEMATOCRIT 23.9 % (42.0-52.0); HEMOGLOBIN 7.6 gm/dL (14.0-18.0); MCH 29.9 pg (26.0-34.0); MCHC 31.8 g/dL (28.0-37.0); RBC 2.54 mil/uL (4.50-6.00); WBC 10.8 thou/uL (4.0-11.0)
[2021-12-10 04:00] VITALS: BP 121/64
[2021-12-10 04:25] LABS: CALCIUM 7.2 mg/dL (8.5-10.1); CREATININE 1.5 mg/dL (0.6-1.3); PHOSPHORUS* 3.9 mg/dL (2.5-4.9); POTASSIUM 4.4 mmol/L (3.5-5.1)
[2021-12-10 06:06] LABS: GLYCOHEMOGLOBIN (HGB A1C) 6.9 % (4.8-5.6)
[2021-12-10 08:00] VITALS: BP 136/75
[2021-12-10 12:00] VITALS: BP 141/81
[2021-12-10 16:05] VITALS: BP 159/75
== END 2021-12-10 18:00 | disposition short-term general hospital (02) | DRG 853 ==
LOC: M.ERS 17:35 → M.ICU 18:55 → M.TBA-ER 18:55 → M.2W 11-26 17:33 → M.ICU 11-27 19:47 → M.2W 12-04 14:23
PROVIDERS: Family Medicine; Internal Medicine; Internal Medicine Critical Care Medicine; Internal Medicine Gastroenterology; Internal Medicine Nephrology; Nurse Practitioner Adult Health; Nurse Practitioner Family; Radiology Diagnostic Radiology; Registered Nurse; ADMIT Internal Medicine; ATTEND Internal Medicine
PROC: 2W3MX1Z Immobilization of Left Lower Extremity using Splint (ICD-10-PCS; 2021-11-25)
PROC: 06HY33Z Insertion of Infusion Device into Lower Vein, Percutaneous Approach (ICD-10-PCS; principal; 2021-11-27)
PROC: 30233N1 Transfusion of Nonautologous Red Blood Cells into Peripheral Vein, Percutaneous Approach (ICD-10-PCS; principal; 2021-11-27)
PROC: 0BH17EZ Insertion of Endotracheal Airway into Trachea, Via Natural or Artificial Opening (ICD-10-PCS; principal; 2021-11-27)
PROC: 5A1955Z Respiratory Ventilation, Greater than 96 Consecutive Hours (ICD-10-PCS; principal; 2021-11-27)
PROC: B548ZZA Ultrasonography of Superior Vena Cava, Guidance (ICD-10-PCS; 2021-11-29)
PROC: 3E0G8GC Introduction of Other Therapeutic Substance into Upper GI, Via Natural or Artificial Opening Endoscopic (ICD-10-PCS; 2021-11-29)
PROC: 02HV33Z Insertion of Infusion Device into Superior Vena Cava, Percutaneous Approach (ICD-10-PCS; 2021-11-29)
PROC: B24BZZ4 Ultrasonography of Heart with Aorta, Transesophageal (ICD-10-PCS; 2021-12-01)
PROC: B4141ZZ Fluoroscopy of Superior Mesenteric Artery using Low Osmolar Contrast (ICD-10-PCS; 2021-12-01)
PROC: 04V33DZ Restriction of Hepatic Artery with Intraluminal Device, Percutaneous Approach (ICD-10-PCS; 2021-12-01)
PROC: B4151ZZ Fluoroscopy of Inferior Mesenteric Artery using Low Osmolar Contrast (ICD-10-PCS; 2021-12-01)
PROC: 5A09357 Assistance with Respiratory Ventilation, Less than 24 Consecutive Hours, Continuous Positive Airway Pressure (ICD-10-PCS; 2021-12-03)
PROC: 5A09357 Assistance with Respiratory Ventilation, Less than 24 Consecutive Hours, Continuous Positive Airway Pressure (ICD-10-PCS; 2021-12-04)
PROC: 5A09357 Assistance with Respiratory Ventilation, Less than 24 Consecutive Hours, Continuous Positive Airway Pressure (ICD-10-PCS; 2021-12-07)
PROC: 0DJD8ZZ Inspection of Lower Intestinal Tract, Via Natural or Artificial Opening Endoscopic (ICD-10-PCS; 2021-12-07)
PROC: 5A09357 Assistance with Respiratory Ventilation, Less than 24 Consecutive Hours, Continuous Positive Airway Pressure (ICD-10-PCS; 2021-12-08)
PROC: 5A0935A Assistance with Respiratory Ventilation, Less than 24 Consecutive Hours, High Flow/Velocity Cannula (ICD-10-PCS; 2021-12-08)
PROC: 5A0935A Assistance with Respiratory Ventilation, Less than 24 Consecutive Hours, High Flow/Velocity Cannula (ICD-10-PCS; 2021-12-09)
DX: A40.9 Streptococcal sepsis, unspecified (principal); R65.21 Severe sepsis with septic shock; I21.4 Non-ST elevation (NSTEMI) myocardial infarction; E11.00 Type 2 diabetes mellitus with hyperosmolarity without nonketotic hyperglycemic-hyperosmolar coma (NKHHC); J96.01 Acute respiratory failure with hypoxia; K72.00 Acute and subacute hepatic failure without coma; I46.9 Cardiac arrest, cause unspecified; N17.0 Acute kidney failure with tubular necrosis; E43 Unspecified severe protein-calorie malnutrition; K26.4 Chronic or unspecified duodenal ulcer with hemorrhage; K21.01 Gastro-esophageal reflux disease with esophagitis, with bleeding; K25.4 Chronic or unspecified gastric ulcer with hemorrhage; K57.31 Diverticulosis of large intestine without perforation or abscess with bleeding; G06.2 Extradural and subdural abscess, unspecified; I63.9 Cerebral infarction, unspecified; R57.8 Other shock; J13 Pneumonia due to Streptococcus pneumoniae; E87.1 Hypo-osmolality and hyponatremia; D68.9 Coagulation defect, unspecified; D62 Acute posthemorrhagic anemia; K55.9 Vascular disorder of intestine, unspecified; I10 Essential (primary) hypertension; E78.5 Hyperlipidemia, unspecified; I25.10 Atherosclerotic heart disease of native coronary artery without angina pectoris; J30.2 Other seasonal allergic rhinitis; M25.561 Pain in right knee; E11.65 Type 2 diabetes mellitus with hyperglycemia; E11.319 Type 2 diabetes mellitus with unspecified diabetic retinopathy without macular edema; E11.51 Type 2 diabetes mellitus with diabetic peripheral angiopathy without gangrene; N28.1 Cyst of kidney, acquired; I35.0 Nonrheumatic aortic (valve) stenosis; I65.29 Occlusion and stenosis of unspecified carotid artery; R01.1 Cardiac murmur, unspecified; I48.0 Paroxysmal atrial fibrillation; E83.51 Hypocalcemia; K44.9 Diaphragmatic hernia without obstruction or gangrene; K31.9 Disease of stomach and duodenum, unspecified; M19.90 Unspecified osteoarthritis, unspecified site; E66.3 Overweight; I95.9 Hypotension, unspecified; Z79.82 Long term (current) use of aspirin; Z79.899 Other long term (current) drug therapy; Z95.1 Presence of aortocoronary bypass graft; Z82.49 Family history of ischemic heart disease and other diseases of the circulatory system